=== PATIENT | female | born 1970 | race Caucasian/White ===

== ENCOUNTER 2021-04-21 06:03 | Day surgery (SDC) | payer OTHER ==
[~2021-04-21] VITALS: Ht 157.5 cm; Wt 66.7 kg
[2021-04-21] MEDS ORDERED: diphenhydrAMINE 50 MG/ML VIAL ONE (07:24)
[2021-04-21] MEDS ORDERED: MIDAZOLAM 5 MG/5 ML VIAL ONE (07:24)
[2021-04-21] MEDS ORDERED: fentaNYL citrate 0.05 MG/ML VIAL ONE (07:24)
[2021-04-21] MEDS ORDERED: fentaNYL citrate 0.05 MG/ML VIAL IVP ONE (13:20)
[2021-04-21] MEDS ORDERED: MIDAZOLAM 2 MG/2 ML VIAL IVP ONE (13:20)
== END 2021-04-21 08:38 | disposition home or self-care (01) ==
LOC: MOR 06:03 → MMU 06:13 → MOR 08:38
PROVIDERS: ATTEND Internal Medicine Gastroenterology
DX: R13.10 Dysphagia, unspecified (principal); K21.9 Gastro-esophageal reflux disease without esophagitis; Z98.890 Other specified postprocedural states
CPT/HCPCS: 43239; J2250; J3010; 88305; 88312; 88313; 88342; J1200

== ENCOUNTER 2022-12-07 09:45 | Day surgery (SDC) | payer OTHER ==
[~2022-12-07] VITALS: Ht 157.5 cm; Wt 63.5 kg
[2022-12-07] MEDS ORDERED: fentaNYL citrate 0.05 MG/ML VIAL ONE (10:53)
[2022-12-07] MEDS ORDERED: MIDAZOLAM 2 MG/2 ML VIAL ONE (10:54)
[2022-12-07] MEDS ORDERED: diphenhydrAMINE 50 MG/ML VIAL ONE (11:01)
[2022-12-07] MEDS ORDERED: fentaNYL citrate 0.05 MG/ML VIAL IVP ONE (13:50)
[2022-12-07] MEDS ORDERED: MIDAZOLAM 2 MG/2 ML VIAL IVP ONE (13:50)
== END 2022-12-07 13:15 | disposition home or self-care (01) ==
LOC: MDS 09:45 → MMU 09:46 → MDS 13:15
PROVIDERS: ATTEND Internal Medicine Gastroenterology
DX: K21.9 Gastro-esophageal reflux disease without esophagitis (principal); K31.A0 Gastric intestinal metaplasia, unspecified; Z79.899 Other long term (current) drug therapy
CPT/HCPCS: 43239; J2250; J3010; J1200